=== PATIENT | male | born 1985 | race Caucasian/White ===

== ENCOUNTER 2016-11-20 13:45 | Emergency (ER) | payer MEDICAID, OTHER ==
[2016-11-20 14:06] VITALS: BP 158/108
--- NOTE | 2016-11-20 14:30 | EDM.PDOC ---
ED HPI GENERAL MEDICAL PROBLEM - General Chief Complaint: Laceration Stated Complaint: CUT FIRST FINGER LEFT HAND Time Seen by Provider: 11/20/16 14:12 Source of Information: Reports: Patient, RN Notes Reviewed History Limitations: Reports: No Limitations - History of Present Illness INITIAL COMMENTS - FREE TEXT/NARRATIVE: 31-year-old gentleman presents emergency department today with a laceration to the distal tip of his index finger on his left hand he injured himself with a knife, bleeding is controlled no functional complaints finger Pain Score (Numeric/FACES): 5 - Related Data Allergies Allergy/AdvReac Type Severity Reaction Status Date / Time No Known Allergies Allergy Verified 11/20/16 13:58 Home Meds: Home Meds Albuterol Sulfate [Proair Hfa] 2 puff IH Q4H PRN 02/12/15 [History] Citalopram Hydrobromide [Celexa] 20 mg PO DAILY 11/20/16 [History] Past Medical History Respiratory History: Reports: Asthma, Bronchitis, Recurrent Musculoskeletal History: Reports: Fracture Psychiatric History: Reports: Anxiety, Depression - Infectious Disease History Infectious Disease History: Reports: Chicken Pox - Past Surgical History HEENT Surgical History: Reports: Tonsillectomy GI Surgical History: Reports: Appendectomy Social & Family History - Tobacco Use Smoking Status *Q: Heavy Tobacco Smoker Years of Tobacco use: 17 Packs/Tins Daily: 1 Used Tobacco, but Quit: No Month Tobacco Last Used: mar Second Hand Smoke Exposure: Yes - Caffeine Use Caffeine Use: Reports: Coffee, Energy Drinks, Soda - Alcohol Use Days Per Week of Alcohol Use: 4 Number of Drinks Per Day: 4 Total Drinks Per Week: 16 - Recreational Drug Use Recreational Drug Use: Yes Drug Use in Last 12 Months: Yes Recreational Drug Type: Reports: Marijuana/Hashish Recreational Drug Use Frequency: Daily - Living Situation & Occupation Living situation: Reports: , Other Occupation: Employed ED ROS GENERAL - Review of Systems Review Of Systems: See Below Constitutional: Reports: No Symptoms Skin: Reports: Wound ED EXAM, SKIN/RASH Exam: See Below Text/Narrative:: There is a superficial laceration distal tip index finger left hand no skin flaps appreciated bleeding is controlled full range of motion of all digits radial pulses 2+, wound is closed with a small amount of glue Course - Vital Signs Last Recorded V/S: Last Vital Signs Temp 98.2 F 11/20/16 14:05 Pulse 106 H 11/20/16 14:05 Resp 16 11/20/16 14:05 BP 158/108 H 11/20/16 14:05 Pulse Ox 97 11/20/16 14:05 Departure - Departure Time of Disposition: 14:54 Disposition: Home, Self-Care 01 Condition: good Clinical Impression: Laceration of left index finger - Discharge Information Forms: ED Department Discharge Additional Instructions: Followup with your primary care as needed, follow wound care instruction sheet. - Assessment/Plan Plan: Assessment Acuity = acute Site and laterality = superficial laceration distal tip left index finger length 3 mm Etiology = trauma with a knife Manifestations = none Location of injury = home Lab values = none Plan Followup with primary care as needed 3-5 days if no improvement follow wound care instruction sheet Patient was in agreement with the plan all questions were answered, they were instructed to return to the emergency department or call for worsening symptoms. This note was dictated using [employer] voice recognition software please call with any questions.
== END 2016-11-20 15:10 | disposition home or self-care (01) ==
LOC: JP.ED 13:45
DX: S61.211A Laceration without foreign body of left index finger without damage to nail, initial encounter (principal); J45.909 Unspecified asthma, uncomplicated; F17.210 Nicotine dependence, cigarettes, uncomplicated; Z79.899 Other long term (current) drug therapy; Z90.49 Acquired absence of other specified parts of digestive tract; W26.0XXA Contact with knife, initial encounter
CPT/HCPCS: 12001; 99283-25

== ENCOUNTER 2017-02-09 07:34 | Emergency (ER) | payer MEDICAID ==
[2017-02-09 07:43] VITALS: BP 159/90
[2017-02-09] MEDS ORDERED: Albuterol/Ipratropium 3.0-0.5 MG/3 ML Neb Soln NEB ONE (08:03)
--- NOTE | 2017-02-09 08:09 | EDM.PDOC ---
[id number] 4d ASTHMA Time Seen by Provider: 02/09/17 07:50 Source of Information: Reports: Patient History Limitations: Reports: No Limitations - History of Present Illness INITIAL COMMENTS - FREE TEXT/NARRATIVE: 31-year-old male with chest tightness due to his "asthma". He feels like his tight, having difficulty breathing. Started after he woke up this morning. No significant cough. No radiation of pain, diaphoresis, nausea or vomiting. Onset: Unknown/Unsure (Sometime overnight) Severity: Mild Associated Symptoms: Reports: Shortness of Breath. Denies: Fever/Chills, Headaches Anterior Chest Pain Score (Numeric/FACES): 2 - Related Data Allergies Allergy/AdvReac Type Severity Reaction Status Date / Time No Known Allergies Allergy Verified 02/09/17 07:44 Home Meds: Home Meds Albuterol Sulfate [Proair Hfa] 2 puff IH Q4H PRN 02/12/15 [History] Citalopram Hydrobromide [Celexa] 20 mg PO DAILY 11/20/16 [History] Past Medical History Respiratory History: Reports: Asthma, Bronchitis, Recurrent Musculoskeletal History: Reports: Fracture Psychiatric History: Reports: Anxiety, Depression - Infectious Disease History Infectious Disease History: Reports: Chicken Pox - Past Surgical History HEENT Surgical History: Reports: Tonsillectomy GI Surgical History: Reports: Appendectomy Social & Family History - Tobacco Use Smoking Status *Q: Current Every Day Smoker Years of Tobacco use: 19 Packs/Tins Daily: 0.2 Used Tobacco, but Quit: No Month Tobacco Last Used: sept Second Hand Smoke Exposure: Yes - Caffeine Use Caffeine Use: Reports: Coffee, Energy Drinks, Soda - Alcohol Use Days Per Week of Alcohol Use: 4 Number of Drinks Per Day: 4 Total Drinks Per Week: 16 - Recreational Drug Use Recreational Drug Use: Yes Drug Use in Last 12 Months: Yes Recreational Drug Type: Reports: Marijuana/Hashish Recreational Drug Use Frequency: Daily - Living Situation & Occupation Living situation: Reports: , Other Occupation: Employed ED ROS GENERAL - Review of Systems Review Of Systems: See Below Constitutional: Denies: Fever Respiratory: Reports: Shortness of Breath Cardiovascular: Reports: Chest Pain GI/Abdominal: Denies: Abdominal Pain, Nausea, Vomiting Skin: Reports: No Symptoms Neurological: Denies: Confusion Psychiatric: Reports: Anxiety ED EXAM, GENERAL - Physical Exam Exam: See Below Exam Limited By: No Limitations General Appearance: Alert, No Apparent Distress Respiratory/Chest: No Respiratory Distress, Lungs Clear, Other (Patient does have some moderate outpatient tenderness across the anterior chest) Cardiovascular: Regular Rate, Rhythm Neurological: Alert, Oriented Psychiatric: Anxious Course - Vital Signs Last Recorded V/S: Last Vital Signs Temp 96.6 F 02/09/17 07:39 Pulse 100 02/09/17 08:10 Resp 18 02/09/17 07:39 BP 159/90 H 02/09/17 07:39 Pulse Ox 95 02/09/17 08:10 - Orders/Labs/Meds Orders: Active Orders 24 hr Category Date Time Status RT Aerosol Therapy [RC] ASDIRECTED Care 02/09/17 08:03 Active Meds: Medications Discontinued Medications Generic Name Dose Route Start Last Admin Trade Name Freq PRN Reason Stop Dose Admin Albuterol/Ipratropium 3 ml 02/09/17 08:03 02/09/17 08:08 Duoneb 3.0-0.5 Mg/3 Ml NEB 02/09/17 08:04 3 ml ONETIME ONE Administration - Re-Assessments/Exams Free Text/Narrative Re-Assessment/Exam: 02/09/17 08:09 Patient is convinced that a nebulizer will relieve his symptoms. A DuoNeb was given. 02/09/17 08:26 After the nebulizer the patient felt subjectively better. Objectively he was unchanged. He was given prednisone to take up to 40 mg daily for the next 2-4 days and encouraged to return to his regular activity. He can return if worsening. Departure - Departure Time of Disposition: 08:32 Disposition: Home, Self-Care 01 Condition: Good Clinical Impression: Reactive airway disease Qualifiers: Asthma severity: mild intermittent Asthma complication type: with acute exacerbation Qualified Code(s): J45.21 - Mild intermittent asthma with (acute) exacerbation - Discharge Information Instructions: Asthma, Adult, [id number] Referrals: PCP,None [Primary Care Provider] - Forms: ED Department Discharge Care Plan Goals: Take 4 pills of prednisone with your first meal of the day for the next 1-3 days. Continue using your inhaler as needed. Return if worsening or concerns. - My Orders Last 24 Hours: My Active Orders 02/09/17 08:03 RT Aerosol Therapy [RC] ASDIRECTED - Assessment/Plan Last 24 Hours: My Active Orders 02/09/17 08:03 RT Aerosol Therapy [RC] ASDIRECTED
== END 2017-02-09 08:34 | disposition home or self-care (01) ==
LOC: JP.ED 07:34
DX: J45.21 Mild intermittent asthma with (acute) exacerbation (principal); F41.9 Anxiety disorder, unspecified; F32.9 Major depressive disorder, single episode, unspecified; F17.210 Nicotine dependence, cigarettes, uncomplicated; Z98.890 Other specified postprocedural states; Z79.899 Other long term (current) drug therapy
CPT/HCPCS: 94640; 99285; J7620

== ENCOUNTER 2017-07-30 21:51 | Emergency (ER) | payer MEDICAID ==
[2017-07-30 22:01] VITALS: BP 160/105
--- NOTE | 2017-07-30 22:27 | EDM.PDOC ---
ED HPI GENERAL MEDICAL PROBLEM - General Chief Complaint: Genitourinary Problem Stated Complaint: TESTICLE PAIN Time Seen by Provider: 07/30/17 22:15 Source of Information: Reports: Patient History Limitations: Reports: No Limitations - History of Present Illness INITIAL COMMENTS - FREE TEXT/NARRATIVE: 32 yo male here with R groin pain. Had been seen in the [facility] after developing sudden onset of R testicular pain while working at the local [employer]. This was not associated with lifting. Initially in the clinic it was felt that he had a testicular infection and he was tx'd with antibiotics. When he did not improve he returned there and this time had an US of his testicle that was negative for any problem. They in turn referred him to a urologist in [place] who upon seeing Juan David promptly dx a hernia. Surgery was then performed. After surgery he continued to have some R groin pain and was told this was normal and pain medicine was prescribed. His R testicle has been retracted since the surgery. He had recently had some very hard stools requiring considerable straining at stool. He adjusted his diet when this occurred so most recently his stools are not as hard. For unknown reasons his R groin pain is now getting worse instead of better so he comes now to the ER for an explanation for this increase in pain. He states that his mother made him come and that he only reluctantly agreed to come. He has not called his surgeon believing that his surgeon would not give him any advice over the phone and would tell him to go to the ER. Follow up with the surgeon is not until the first week of August. There has not been a fever or vomiting. His appetite has been normal and he is urinating normally. After examining him and finding a persistently retracted R testicle, normal perineal bruising consistent with his surgery, and a normal abdominal exam I told him the most likely explanation for his pain was that straining at stool had stressed the still healing surgical site. I told him I would attempt to reach his surgeon to see if there was anything he recommended and would let him know. At this point he seemed very upset suddenly that I could not immediately tell him exactly what was causing his pain. Said he could call his surgeon himself the next day and that he didn't need help with that. Said he was going to leave and was not going to wait around to sign papers. Also informed me on his way out of the ER that he had recorded out entire conversation on his phone. Onset: Gradual Onset Date: 07/21/17 Duration: Day(s):, Getting Worse Location: Reports: Abdomen (RLQ) Quality: Reports: Ache Severity: Moderate Improves with: Reports: Rest Worsens with: Reports: Movement Context: Reports: Other (Had) Associated Symptoms: Reports: No Other Symptoms. 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: Other (see below) (pain pills, hydrocodone(getting low , but not yet out).) right testicle/ groin Pain Score (Numeric/FACES): 7 - Related Data Allergies Allergy/AdvReac Type Severity Reaction Status Date / Time No Known Allergies Allergy Verified 02/09/17 07:44 Home Meds: Home Meds Albuterol Sulfate [Proair Hfa] 2 puff IH Q4H PRN 02/12/15 [History] Citalopram Hydrobromide [Celexa] 20 mg PO DAILY 11/20/16 [History] Hydrocodone/Acetaminophen [Hydrocodon-Acetaminophen 5-325] 1 tab PO Q2H PRN [History] Past Medical History Respiratory History: Reports: Asthma, Bronchitis, Recurrent Musculoskeletal History: Reports: Fracture Psychiatric History: Reports: Anxiety, Depression - Infectious Disease History Infectious Disease History: Reports: Chicken Pox - Past Surgical History HEENT Surgical History: Reports: Tonsillectomy GI Surgical History: Reports: Appendectomy, Hernia, Inguinal Social & Family History - Tobacco Use Smoking Status *Q: Current Every Day Smoker Years of Tobacco use: 15 Packs/Tins Daily: 0.5 Used Tobacco, but Quit: No Month Tobacco Last Used: mar Second Hand Smoke Exposure: Yes - Caffeine Use Caffeine Use: Reports: None - Alcohol Use Days Per Week of Alcohol Use: 4 Number of Drinks Per Day: 4 Total Drinks Per Week: 16 - Recreational Drug Use Recreational Drug Use: Yes Drug Use in Last 12 Months: Yes Recreational Drug Type: Reports: Marijuana/Hashish Recreational Drug Use Frequency: Daily - Living Situation & Occupation Living situation: Reports: , Other Occupation: Employed ED ROS GENERAL - Review of Systems Review Of Systems: See Below Constitutional: Reports: No Symptoms HEENT: Reports: No Symptoms Respiratory: Reports: No Symptoms Cardiovascular: Reports: No Symptoms GI/Abdominal: Reports: No Symptoms : Reports: Other (Pain R groin/testicle) Musculoskeletal: Reports: No Symptoms Skin: Reports: Bruising (R perineal area where he had his hernia repair. ) Neurological: Reports: No Symptoms ED EXAM, GI/ABD - Physical Exam Exam: See Below Exam Limited By: No Limitations General Appearance: Alert, WD/WN, No Apparent Distress Eyes: Bilateral: Normal Appearance Ears: Normal External Exam, Normal Canal, Hearing Grossly Normal Nose: Normal Inspection, Normal Mucosa, No Blood Throat/Mouth: Normal Voice, No Airway Compromise Head: Atraumatic, Normocephalic Neck: Normal Inspection Respiratory/Chest: No Respiratory Distress, Lungs Clear, Normal Breath Sounds, No Accessory Muscle Use Cardiovascular: Regular Rate, Rhythm GI/Abdominal Exam: Normal Bowel Sounds, Soft, No Distention, Tender, Other ( Mild tenderness over RLQ in area of his recent surgery. ). No: No Mass, Distended, Guarding, Rigid, Rebound (Male) Exam: Circumcised, Testicular Tenderness (R) (R testicle retracted, but not enlarged. ). No: Cremasteric Reflex, Inguinal Lymphadenopathy, Penile Lesions, Rash, Scrotal Swelling, Scrotum Tenderness (L), Scrotum Tenderness (R) , Suprapubic Fullness, Testicular Mass, Testicular Tenderness (L), Urethral Discharge Back Exam: Normal Inspection, CVA Tenderness (R) Extremities: Normal Inspection Neurological: Alert, Oriented, CN II-XII Intact, Normal Cognition, No Motor/ Sensory Deficits Psychiatric: Other (demonstrates some characteristics of a personality disorder , ? Paranoid personality disorder). No: Anxious, Tearful Skin Exam: Warm, Dry, Intact, Ecchymosis (R groin area secondary to his recent surgery. ) Course - Vital Signs Last Recorded V/S: Last Vital Signs Temp 36.8 C 07/30/17 22:01 Pulse 126 H 07/30/17 22:01 Resp 16 07/30/17 22:01 BP 160/105 H 07/30/17 22:01 Pulse Ox 96 07/30/17 22:01 Departure - Departure Time of Disposition: 22:25 Disposition: Against Medical Advice 07 Condition: Fair Clinical Impression: RLQ abdominal pain - Discharge Information Referrals: PCP,None [Primary Care Provider] - Forms: ED Department Discharge
== END 2017-07-30 22:27 | disposition left against medical advice (07) ==
LOC: JP.ED 21:51
DX: N50.811 Right testicular pain (principal); R10.31 Right lower quadrant pain; R58 Hemorrhage, not elsewhere classified; J45.909 Unspecified asthma, uncomplicated; F17.210 Nicotine dependence, cigarettes, uncomplicated; Z79.899 Other long term (current) drug therapy
CPT/HCPCS: 99283

== ENCOUNTER 2017-11-07 07:26 | Day surgery (SDC) | payer MEDICAID ==
[2017-11-07] MEDS ORDERED: Propofol 200 MG/20 ML SDV ONE ×4 (07:57→12:18)
[2017-11-07] MEDS ORDERED: Midazolam 1 MG/ML 2 ML SDV ONE ×2 (07:57→11:29)
[2017-11-07] MEDS ORDERED: fentaNYL 100 MCG/2 ML SDV ONE ×2 (07:57→11:29)
[2017-11-07] MEDS ORDERED: Celecoxib 200 MG Cap PO ONE (08:15)
[2017-11-07] MEDS ORDERED: ceFAZolin 2 GM in Premix Bag 1 BAG IV ONE (08:15)
[2017-11-07] MEDS ORDERED: Dextrose 5%-Lactated Ringers 1,000 ML IV SCH (08:15)
[2017-11-07] MEDS ORDERED: Acetaminophen 500 MG Tab PO ONE (08:15)
[2017-11-07] MEDS ORDERED: Albuterol/Ipratropium 3.0-0.5 MG/3 ML Neb Soln NEB ONE (08:15)
[2017-11-07] MEDS ORDERED: Ketamine 500 MG/5 ML MDV IV ONE (08:45)
[2017-11-07] MEDS ORDERED: Lidocaine 1% with EPINEPHrine 1:100,000 50 ML MDV ONE (10:43)
[2017-11-07] MEDS ORDERED: Bupivacaine 0.5% 50 ML MDV ONE (10:43)
[2017-11-07] MEDS ORDERED: Triamcinolone Acetonide 40 MG/ML 1 ML MDV ONE (11:54)
[2017-11-07] MEDS ORDERED: Rocuronium 50 MG/5 ML Vial ONE (12:27)
[2017-11-07] MEDS ORDERED: Succinylcholine 200 MG/10 ML MDV ONE (12:27)
[2017-11-07] MEDS ORDERED: Lactated Ringers 1,000 ML ONE (12:29)
[2017-11-07] MEDS ORDERED: Glycopyrrolate 0.2 MG/ML 5 ML MDV ONE (12:39)
[2017-11-07] MEDS ORDERED: Neostigmine Methylsulfate 1 MG/ML 5 ML Syringe ONE (12:39)
[2017-11-07] MEDS ORDERED: Ketorolac 60 MG/2 ML SDV ONE (12:48)
[2017-11-07] MEDS ORDERED: Acetaminophen/oxyCODONE 325-5 MG Tab PO PRN (13:49)
[2017-11-07 14:17] VITALS: BP 144/80
--- NOTE | 2017-11-17 10:56 | OR ---
DATE OF PROCEDURE: 11/07/2017 PREOPERATIVE DIAGNOSIS: Chronic pain with recurrent right inguinal hernia. POSTOPERATIVE DIAGNOSES: 1. Chronic pain with recurrent right inguinal hernia. 2. Exaggerated inflammatory response to a mesh. OPERATIVE PROCEDURE: 1. Right inguinal exploration with: a. Repair of recurrent incarcerated right inguinal hernia with mesh (23658). b. Removal of intraperitoneal mesh (48463). c. Probable division of the right ilioinguinal nerve (63040). d. Probable division of the right genital branch of genitofemoral nerve (55419). ANESTHESIA: Local plus IV sedation converted to general. TRUCK PACKER: SARAH Edmonds INDICATION FOR PROCEDURE: This is a 32-year-old who is status post repair of right inguinal hernia with mesh in [place] in July of this year. Recently, he developed quite severe pain and presents for consideration of re-repair. On examination, the patient was noted to have what appeared to be recurrence of the hernia. There was also quite a bit of inflammation in the area. After discussion of the plan to begin proceed with anal exploration and re-repair of the hernia most likely with mesh plug technique once again and attempted division of the right ilioinguinal nerve and genital branch of the genitofemoral nerve to minimize postoperative neuropathic pain and we would also injected Kenalog into the inguinal floor at the conclusion of the procedure to reduce the amount of inflammatory response. Potential risks of the procedure including bleeding, infection, injury to underlying viscera, injury to the cord structures resulting in potentially impaired fertility and possibility of persistent postop pain over and over and the patient wishes to proceed. DESCRIPTION OF PROCEDURE: The patient was taken to the operating room, and after IV sedation was administered, the abdomen and groin areas were prepped and draped. The right inguinal area was anesthetized with 1% lidocaine mixed with Marcaine and previously used incision was then reused and carried somewhat lateral to the previous incision well across the right inguinal area, and it was carried down through the skin and subcutaneous tissue. As one approached the external ring, this was then divided. There was quite intense inflammatory response to this with some mesh present in that plane. This was wrapped around the cord structures somewhat. This was carefully dissected off with only one of the veins of the venous plexus requiring division upon removal. There appeared to be an exaggerated inflammatory response to the mesh in that plane, once the cord structures were moved up, it was noted the patient had prolapse of the intraperitoneal mesh in a general upward direction over Coopers ligament. This was then initially excised and the intraperitoneal mesh was then removed using electrocautery for dissection. At this point, the extra large mesh plug was then placed into the defect. This was placed underneath the conjoined tendon superior to Hunter ligament. In this case, it was affixed to Hunter ligament using the titanium tacking screws which one would expect to have a better likelihood of staying in place. The underside of the mesh was then tacked beneath the edges of the conjoined tendon superiorly, laterally, and medially with horizontal mattress sutures of 0 Vicryl stitch over this and then the conjoined tendon was tacked down to the shelving portion of the inguinal ligament with a running 0 Vicryl stitch to provide some additional coverage into that area. Medially, the floor had some mesh present which at this point didn't appear to be causing a particular problem and did result in good solid inguinal floor medially. During the course of the dissection what appeared to be the ilioinguinal nerve was identified and excised and then dissection in the area of cord structures upon what appeared to be most likely the genital branch of the genitofemoral nerve. These were both divided with the latter being at the point of the internal ring and the former in the lateral aspect of the incision. At that point, no further problems were noted. The area of the inguinal floor and surrounding areas were injected with total of 30 mg Kenalog mixed with 0.5% Marcaine. The additional flap portion of the mesh plug system was not reduced in this case and the external oblique aponeurosis was then approximated with a 3-0 Vicryl stitch as was the Siva's fascia and the skin closed with 4-0 Vicryl subcuticular stitch. Dressing was applied. The patient was taken to the recovery room in satisfactory condition. There were no evident complications. Levi Reynoso MD /[id number]
== END 2017-11-07 14:39 | disposition home or self-care (01) ==
LOC: JP.SDS 07:26
PROVIDERS: ATTEND Surgery
DX: K40.91 Unilateral inguinal hernia, without obstruction or gangrene, recurrent (principal); T85.79XA Infection and inflammatory reaction due to other internal prosthetic devices, implants and grafts, initial encounter; G89.29 Other chronic pain; J45.909 Unspecified asthma, uncomplicated; E66.9 Obesity, unspecified
CPT/HCPCS: 49520; 64772; 88300; 88305; A9270; C1781; J0330; J0690; J1885; J2020; J2250; J2704; J2710; J3010; J3301; J7042; J7120; J7620

== ENCOUNTER 2018-02-14 15:17 | Emergency (ER) | payer MEDICAID, OTHER ==
[2018-02-14] MEDS: Albuterol 0.083% 2.5 MG/3 ML Neb Soln NEB ONE (15:22)
[2018-02-14 15:32] VITALS: BP 135/67
--- NOTE | 2018-02-14 15:57 | EDM.PDOC ---
ED HPI GENERAL MEDICAL PROBLEM - General Chief Complaint: Respiratory Problem Stated Complaint: TROUBLE BREATHING Time Seen by Provider: 02/14/18 15:22 Source of Information: Reports: Patient History Limitations: Reports: No Limitations - History of Present Illness INITIAL COMMENTS - FREE TEXT/NARRATIVE: 32 yo male presents with hyperventilation and complaints of asthma exacerbation. 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 He used his albuterol inhaler without relief. denies seasonal allergies. denies anxiety Generalized Pain Score (Numeric/FACES): 2 - Related Data Allergies Allergy/AdvReac Type Severity Reaction Status Date / Time No Known Allergies Allergy Verified 11/07/17 07:55 Home Meds: Home Meds Albuterol Sulfate [Proair Hfa] 2 puff IH Q4H PRN 02/12/15 [History] Citalopram Hydrobromide [Celexa] 20 mg PO DAILY 11/20/16 [History] Hydrocodone/Acetaminophen [Hydrocodon-Acetaminophen 5-325] 1 tab PO Q2H PRN [History] Ibuprofen 800 mg PO Q8HR PRN 11/06/17 [History] Past Medical History HEENT History: Reports: None, Impaired Vision Respiratory History: Reports: Asthma, Bronchitis, Recurrent Gastrointestinal History: Reports: None Musculoskeletal History: Reports: Fracture Psychiatric History: Reports: Anxiety, Depression Endocrine/Metabolic History: Reports: Obesity/BMI 30+ - Infectious Disease History Infectious Disease History: Reports: Chicken Pox - Past Surgical History Head Surgeries/Procedures: Reports: None HEENT Surgical History: Reports: Tonsillectomy Respiratory Surgical History: Reports: None GI Surgical History: Reports: Appendectomy, Hernia, Inguinal Endocrine Surgical History: Reports: None Musculoskeletal Surgical History: Reports: None Dermatological Surgical History: Reports: None Social & Family History - Family History Family Medical History: Noncontributory - Tobacco Use Smoking Status *Q: Current Every Day Smoker Years of Tobacco use: 23 Packs/Tins Daily: 0.2 - Caffeine Use Caffeine Use: Reports: Coffee - Recreational Drug Use Recreational Drug Use: Yes Drug Use in Last 12 Months: Yes Recreational Drug Type: Reports: Marijuana/Hashish Recreational Drug Use Frequency: Daily - Living Situation & Occupation Living situation: Reports: , Other Occupation: Employed ED ROS GENERAL - Review of Systems Review Of Systems: See Below Constitutional: Reports: Fatigue. Denies: Fever, Chills HEENT: Denies: Sinus Problem Respiratory: Reports: Shortness of Breath. Denies: Wheezing, Pleuritic Chest Pain, Cough Cardiovascular: Denies: Chest Pain GI/Abdominal: Denies: Abdominal Pain ED EXAM, GENERAL - Physical Exam Exam: See Below Exam Limited By: No Limitations General Appearance: Alert, WD/WN, Anxious, Mild Distress Head: Atraumatic, Normocephalic Neck: Normal Inspection, Supple, Non-Tender, Full Range of Motion Respiratory/Chest: Lungs Clear, Normal Breath Sounds, No Accessory Muscle Use, Chest Non-Tender Cardiovascular: No Edema, No Murmur, Tachycardia GI/Abdominal: Normal Bowel Sounds, Soft, Non-Tender Neurological: Alert, Oriented Psychiatric: Normal Affect, Normal Mood Skin Exam: Warm, Dry, Intact Course - Vital Signs Last Recorded V/S: Last Vital Signs Temp 36.9 C 02/14/18 15:32 Pulse 94 02/14/18 15:32 Resp 28 H 02/14/18 15:32 BP 135/67 02/14/18 15:32 Pulse Ox 98 02/14/18 15:32 - Orders/Labs/Meds Orders: Active Orders 24 hr Category Date Time Status RT Aerosol Therapy [RC] ASDIRECTED Care 02/14/18 15:18 Active RT Aerosol Therapy [RC] ASDIRECTED Care 02/14/18 15:44 Active Meds: Medications Discontinued Medications Generic Name Dose Route Start Last Admin Trade Name Reuben PRN Reason Stop Dose Admin Albuterol 2.5 mg 02/14/18 15:18 02/14/18 15:22 Proventil Neb Soln NEB 02/14/18 15:19 2.5 mg ONETIME ONE Administration Albuterol/Ipratropium 3 ml 02/14/18 15:44 02/14/18 15:59 Duoneb 3.0-0.5 Mg/3 Ml NEB 02/14/18 15:45 3 ml ONETIME ONE Administration Methylprednisolone Sodium Succinate 125 mg 02/14/18 15:45 02/14/18 16:00 Solu-Medrol IM 02/14/18 15:46 125 mg ONETIME ONE Administration - Re-Assessments/Exams Free Text/Narrative Re-Assessment/Exam: 02/14/18 16:20 appears more relaxed with return of normal respiration rate post neb. IM steroid and home to rest Departure - Departure Time of Disposition: 16:20 Disposition: Home, Self-Care 01 Condition: Good Clinical Impression: Asthma exacerbation Qualifiers: Asthma severity: moderate Asthma persistence: unspecified Qualified Code(s): J45.901 - Unspecified asthma with (acute) exacerbation - Discharge Information *PRESCRIPTION DRUG MONITORING PROGRAM REVIEWED*: Not Applicable *COPY OF PRESCRIPTION DRUG MONITORING REPORT IN PATIENT CHAD: Not Applicable Instructions: Asthma, Adult, [id number] Referrals: PCP,None [Primary Care Provider] - Forms: ED Department Discharge Additional Instructions: home to rest increase fluid intake follow-up with primary care for continued asthma management - My Orders Last 24 Hours: My Active Orders 02/14/18 15:18 RT Aerosol Therapy [RC] ASDIRECTED 02/14/18 15:44 RT Aerosol Therapy [RC] ASDIRECTED - Assessment/Plan Last 24 Hours: My Active Orders 02/14/18 15:18 RT Aerosol Therapy [RC] ASDIRECTED 02/14/18 15:44 RT Aerosol Therapy [RC] ASDIRECTED
[2018-02-14] MEDS: Albuterol/Ipratropium 3.0-0.5 MG/3 ML Neb Soln NEB ONE (15:59)
[2018-02-14] MEDS: methylPREDNISolone Sodium Succinate 125 MG/2 ML SDV IM ONE (16:00)
== END 2018-02-14 16:28 | disposition home or self-care (01) ==
LOC: JP.ED 15:17
DX: J45.901 Unspecified asthma with (acute) exacerbation (principal); F32.9 Major depressive disorder, single episode, unspecified; E66.9 Obesity, unspecified; F17.210 Nicotine dependence, cigarettes, uncomplicated
CPT/HCPCS: 94640; 96372; 99285; J2930; J7620

== ENCOUNTER 2018-08-30 19:31 | Emergency (ER) | payer MEDICAID ==
[2018-08-30 20:18] VITALS: BP 145/91
[2018-08-30] MEDS ORDERED: HYDROmorphone 1 MG/ML Syringe IM ONE (20:31)
--- NOTE | 2018-08-30 20:36 | EDM.PDOC ---
ED HPI GENERAL MEDICAL PROBLEM - General Chief Complaint: General Stated Complaint: GROIN PAIN Time Seen by Provider: 08/30/18 20:27 Source of Information: Reports: Patient, Family, Old Records, RN Notes Reviewed History Limitations: Reports: No Limitations - History of Present Illness INITIAL COMMENTS - FREE TEXT/NARRATIVE: 33-year-old gentleman presents to the emergency department today with complaint of groin pain he has a known history of inguinal hernia with mesh unfortunately his mesh has failed he is scheduled for surgery repair on Friday of this upcoming week his biggest issue is pain control he has use hydrocodone the past which provided some relief right groin Pain Score (Numeric/FACES): 7 - Related Data Allergies Allergy/AdvReac Type Severity Reaction Status Date / Time No Known Allergies Allergy Verified 08/30/18 20:07 Home Meds: Home Meds Albuterol Sulfate [Proair Hfa] 2 puff IH Q4H PRN 02/12/15 [History] Hydrocodone/Acetaminophen [Hydrocodon-Acetaminophen 5-325] 1 tab PO Q2H PRN [History] Past Medical History HEENT History: Reports: Impaired Vision Respiratory History: Reports: Asthma, Bronchitis, Recurrent Musculoskeletal History: Reports: Fracture Psychiatric History: Reports: Anxiety, Depression Endocrine/Metabolic History: Reports: Obesity/BMI 30+ - Infectious Disease History Infectious Disease History: Reports: Chicken Pox - Past Surgical History Head Surgeries/Procedures: Reports: None HEENT Surgical History: Reports: Tonsillectomy GI Surgical History: Reports: Appendectomy, Hernia, Inguinal, Other (See Below) Other GI Surgeries/Procedures: mesh repair Dermatological Surgical History: Reports: None Social & Family History - Family History Family Medical History: Noncontributory - Tobacco Use Smoking Status *Q: Current Every Day Smoker Years of Tobacco use: 24 Packs/Tins Daily: 0.3 - Caffeine Use Caffeine Use: Reports: None - Recreational Drug Use Recreational Drug Use: Yes Drug Use in Last 12 Months: Yes Recreational Drug Type: Reports: Marijuana/Hashish Recreational Drug Use Frequency: Daily - Living Situation & Occupation Living situation: Reports: , Other Occupation: Employed ED ROS GENERAL - Review of Systems Review Of Systems: See Below Constitutional: Reports: No Symptoms GI/Abdominal: Reports: Abdominal Pain. Denies: Nausea, Vomiting ED EXAM, GENERAL - Physical Exam Exam: See Below Free Text/Narrative:: Examination of the groin the surgical wound is clean dry and intact is tender to the touch there is no palpable mass appreciated otherwise abdomen is soft and nontender Exam Limited By: No Limitations General Appearance: Alert, Mild Distress Respiratory/Chest: No Respiratory Distress Course - Vital Signs Last Recorded V/S: Last Vital Signs Temp 99.0 F 08/30/18 20:18 Pulse 98 08/30/18 20:18 Resp 19 08/30/18 20:18 BP 145/91 H 08/30/18 20:18 Pulse Ox 97 08/30/18 20:18 - Orders/Labs/Meds Orders: Active Orders 24 hr Category Date Time Status HYDROmorphone [Dilaudid] Med 08/30/18 20:31 Once 1 mg IM ONETIME ONE Departure - Departure Time of Disposition: 20:35 Disposition: Home, Self-Care 01 Condition: Fair Clinical Impression: Right groin pain - Discharge Information Referrals: PCP,None [Primary Care Provider] - Forms: ED Department Discharge, ED Return to Work/School Form Additional Instructions: Use ibuprofen for baseline pain control, use Percocet as needed for breakthrough pain, keep your follow-up appointment with general surgery on Friday of this next week - My Orders Last 24 Hours: My Active Orders 08/30/18 20:31 HYDROmorphone [Dilaudid] 1 mg IM ONETIME ONE - Assessment/Plan Last 24 Hours: My Active Orders 08/30/18 20:31 HYDROmorphone [Dilaudid] 1 mg IM ONETIME ONE Plan: Assessment Acuity = acute Site and laterality = right inguinal groin hernia status post repair with mesh failure Etiology = unknown etiology Manifestations = pain] Location of injury = Home Lab values = none Plan Prescription written for oxycodone 5/325 one tablet by mouth 3 times a day when necessary total #10 he will follow-up for surgery This note was dictated using [employer] voice recognition software please call with any questions on syntax or grammar.
== END 2018-08-30 21:13 | disposition home or self-care (01) ==
LOC: JP.ED 19:31
DX: K40.90 Unilateral inguinal hernia, without obstruction or gangrene, not specified as recurrent (principal); F17.210 Nicotine dependence, cigarettes, uncomplicated; Z90.49 Acquired absence of other specified parts of digestive tract; Z98.890 Other specified postprocedural states
CPT/HCPCS: 96372; 99283; J1170

== ENCOUNTER 2018-09-01 07:40 | Day surgery (SDC) | payer MEDICAID ==
[~2018-09-01 07:40] MED LIST: Bupivacaine 0.5% 50 ML MDV ONE; Lidocaine 1% with EPINEPHrine 1:100,000 50 ML MDV ONE
[2018-09-01] MEDS ORDERED: Albuterol/Ipratropium 3.0-0.5 MG/3 ML Neb Soln NEB ONE (07:49)
[2018-09-01] MEDS ORDERED: fentaNYL 250 MCG/5 ML SDV ONE ×2 (08:24→08:59)
[2018-09-01] MEDS ORDERED: Neostigmine Methylsulfate 1 MG/ML 5 ML Syringe ONE (08:25)
[2018-09-01] MEDS ORDERED: Glycopyrrolate 0.2 MG/ML 5 ML MDV ONE (08:25)
[2018-09-01] MEDS ORDERED: Succinylcholine 200 MG/10 ML MDV ONE (08:25)
[2018-09-01] MEDS ORDERED: Dexamethasone 4 MG/ML SDV ONE (08:25)
[2018-09-01] MEDS ORDERED: Propofol 200 MG/20 ML SDV ONE ×2 (08:25→10:16)
[2018-09-01] MEDS ORDERED: Ondansetron 4 MG/2 ML SDV ONE (08:25)
[2018-09-01] MEDS ORDERED: Rocuronium 50 MG/5 ML Vial ONE (08:25)
[2018-09-01] MEDS ORDERED: Sodium Chloride 0.9% 1,000 ML IV SCH (08:30)
[2018-09-01] MEDS ORDERED: Ropivacaine 60 ML, Dexamethasone 8 MG, EPINEPHrine 0.4 MG, Sodium Chloride 0.9% 17.6 ML NERVRT SCH ×4 (08:45)
[2018-09-01] MEDS ORDERED: ceFAZolin 1 GM Vial ONE (09:12)
[2018-09-01] MEDS ORDERED: Sodium Chloride 0.9% 10 ML ONE (09:12)
[2018-09-01] MEDS ORDERED: Ketorolac 60 MG/2 ML SDV ONE (09:59)
[2018-09-01] MEDS ORDERED: Acetaminophen/HYDROcodone 325-5 MG Tab PO PRN (11:47)
[2018-09-01 12:10] VITALS: BP 134/69
--- NOTE | 2018-09-01 13:37 | OR ---
DATE OF PROCEDURE: 09/01/2018 PROCEDURE: Bilateral transversus abdominis plane block. COMPLICATIONS: None. DEVULCANIZER OPERATOR: None. RISKS: Risks, benefits, alternatives, and limitations including, but not limited to infection, bleeding, and injury to abdominal structures were explained to the patient. PROCEDURE IN DETAIL: Using the 11 Mhz ultrasound probe, the transversus plane identified on the right. This was directly injected with the total contents of the syringe. The opposite side was then performed in same manner, same fashion, same technique, in the same sequence, using the same equipment. The patient tolerated the procedure well. Sarmad Arnold MD /[id number]
--- NOTE | 2018-09-01 13:39 | OR ---
DATE OF PROCEDURE: 09/01/2018 PROCEDURE: Right total extraperitoneal hernia repair, recurrent, strangulated, incarcerated. COMPLICATIONS: None. GAS STATION SUPERVISOR: None. ANESTHESIA: MAC. PREOPERATIVE DIAGNOSIS: Recurrent incarcerated hernia, right. POSTOPERATIVE DIAGNOSIS: Recurrent incarcerated hernia, right. RISKS: Risks, benefits, alternatives, and limitations including, but not limited to infection, bleeding, and perforation were explained to the patient, who wished to proceed. We also discussed chronic pain, recurrent hernias, and other risks not listed here. PROCEDURE IN DETAIL: The patient was placed in a supine position. An infraumbilical incision was made. Electrocautery was used to carry it down to the fascia, which was opened with the electrocautery itself. The rectus muscle was deflected to the right, and a preperitoneal space was created using a Pean. Using the balloon dissector, this was then passed in the preperitoneal plane. This was insufflated and held for 1 minute. This was then deflated and the preperitoneal space was inspected. There was no evidence of enterotomy or peritoneal perforation. Dissection was then commenced in a lateral to medial approach. The pubic symphysis, epigastric arteries, cord structures were all identified and re-identified during the procedure. This avascular plane was identified and dissected. The indirect hernia was identified and the peritoneum was reduced with mild difficulty. No abnormal bleeding was noted. The patient also had a small area of defect which was noted to be in the sac itself. A small piece of mesh was placed within the sac and then closed again with interrupted suture. The mesh was then introduced through the 10 mm port. Of note, two 5 mm ports were entered previously in the surgery for facilitation of dissection. The mesh was placed with approximately 2-cm overlap of the pubic symphysis and unrolled without difficulty. The air was removed. The ports were removed. The fascia was closed with #1 Vicryl interrupted sutures. Subcutaneous tissues were approximated with Vicryl and the skin was closed with Vicryl. The patient tolerated the procedure well. Sarmad Arnold MD /[id number]
== END 2018-09-01 12:05 | disposition home or self-care (01) ==
LOC: JP.SDS 07:40
PROVIDERS: ATTEND Surgery
DX: K40.31 Unilateral inguinal hernia, with obstruction, without gangrene, recurrent (principal); J45.909 Unspecified asthma, uncomplicated; F32.9 Major depressive disorder, single episode, unspecified; F17.210 Nicotine dependence, cigarettes, uncomplicated
CPT/HCPCS: 36415; 80048; 85027; A9270-GY; C1781; J0171; J0330; J0690; J1100; J1885; J2405; J2704; J2710; J2795; J3010; J3490; J7030; J7050; J7620-GY

== ENCOUNTER 2018-09-20 20:41 | Emergency (ER) | payer MEDICAID ==
[2018-09-20 21:24] VITALS: BP 149/90
[2018-09-20] MEDS ORDERED: HYDROmorphone 1 MG/ML Syringe IM ONE (21:33)
--- NOTE | 2018-09-20 21:53 | EDM.PDOC ---
ED HPI GENERAL MEDICAL PROBLEM - General Chief Complaint: Abdominal Pain Stated Complaint: POSSIBLE HERNIA Time Seen by Provider: 09/20/18 21:31 Source of Information: Reports: Patient, RN Notes Reviewed History Limitations: Reports: No Limitations - History of Present Illness INITIAL COMMENTS - FREE TEXT/NARRATIVE: 33-year-old gentleman presents to the emergency department today with complaint of right inguinal pain, he has had multiple hernia and surgical repair complications in this area he recently slipped on the ice a couple of days ago was able to catch himself but sudden onset of pain in the area. Right Lower Abdomen Pain Score (Numeric/FACES): 5 - Related Data Allergies Allergy/AdvReac Type Severity Reaction Status Date / Time No Known Allergies Allergy Verified 09/20/18 21:15 Home Meds: Home Meds Albuterol Sulfate [Proair Hfa] 2 puff IH Q4H PRN 02/12/15 [History] Past Medical History HEENT History: Reports: Impaired Vision, Other (See Below) Other HEENT History: wears glasses Respiratory History: Reports: Asthma, Bronchitis, Recurrent Gastrointestinal History: Reports: None Musculoskeletal History: Reports: Fracture Psychiatric History: Reports: Anxiety, Depression Endocrine/Metabolic History: Reports: Obesity/BMI 30+ - Infectious Disease History Infectious Disease History: Reports: Chicken Pox - Past Surgical History Head Surgeries/Procedures: Reports: None HEENT Surgical History: Reports: Tonsillectomy GI Surgical History: Reports: Appendectomy, Hernia, Inguinal, Other (See Below) Other GI Surgeries/Procedures: mesh repair 09/01/2018 Dermatological Surgical History: Reports: None Social & Family History - Family History Family Medical History: Noncontributory - Tobacco Use Smoking Status *Q: Current Some Day Smoker Years of Tobacco use: 22 Packs/Tins Daily: 0 Used Tobacco, but Quit: No Tobacco Use Comment: Smokes off and on. Second Hand Smoke Exposure: No - Caffeine Use Caffeine Use: Reports: None - Alcohol Use Days Per Week of Alcohol Use: 0 - Recreational Drug Use Recreational Drug Use: Yes Drug Use in Last 12 Months: Yes Recreational Drug Type: Reports: Marijuana/Hashish Recreational Drug Use Frequency: Daily - Living Situation & Occupation Living situation: Reports: , Other Occupation: Employed ED ROS GENERAL - Review of Systems Review Of Systems: See Below Constitutional: Reports: No Symptoms GI/Abdominal: Reports: Abdominal Pain. Denies: Nausea, Vomiting ED EXAM, GI/ABD - Physical Exam Exam: See Below Text/Narrative:: Examination abdomen is soft and nontender except for the right inguinal area exquisitely tender the touch bowel sounds are present Exam Limited By: No Limitations General Appearance: Alert, Mild Distress Course - Vital Signs Last Recorded V/S: Last Vital Signs Temp 98.1 F 09/20/18 21:22 Pulse 107 H 09/20/18 21:22 Resp 16 09/20/18 21:22 BP 149/90 H 09/20/18 21:22 Pulse Ox 96 09/20/18 21:22 - Orders/Labs/Meds Meds: Medications Discontinued Medications Generic Name Dose Route Start Last Admin Trade Name Freq PRN Reason Stop Dose Admin Hydromorphone HCl 1 mg 09/20/18 21:33 09/20/18 21:39 Dilaudid IM 09/20/18 21:34 1 mg ONETIME ONE Administration Departure - Departure Time of Disposition: 21:52 Disposition: Home, Self-Care 01 Condition: Fair Clinical Impression: Abdominal pain Qualifiers: Abdominal location: right lower quadrant Qualified Code(s): R10.31 - Right lower quadrant pain - Discharge Information Referrals: PCP,None [Primary Care Provider] - Additional Instructions: Please report for your CAT scan of the abdomen with oral contrast tomorrow call the [facility] tomorrow for an appointment time with Dr. Arnold on Friday, at this time he will review the CAT scan with you and developed a plan for treatment of your pain - Assessment/Plan Plan: Assessment Acuity = acute Site and laterality = abdominal pain pelvic area right inguinal region Etiology = suspicious for disruption of recent surgery: Repair to the right inguinal hernia Manifestations = none Location of injury = Home Lab values = none Plan called discussed case Dr. Arnold at [address] the abdomen and pelvis with oral contrast on Friday follow-up with him in clinic on Friday prescription written for hydrocodone 5/325 one tab by mouth 3 times a day when necessary total #10 This note was dictated using [employer] voice recognition software please call with any questions on syntax or grammar.
== END 2018-09-20 22:03 | disposition home or self-care (01) ==
LOC: JP.ED 20:41
DX: R10.31 Right lower quadrant pain (principal); F17.210 Nicotine dependence, cigarettes, uncomplicated; Z79.899 Other long term (current) drug therapy
CPT/HCPCS: 96372; 99283; J1170

== ENCOUNTER 2019-04-15 07:20 | Day surgery (SDC) | payer MEDICAID ==
[2019-04-15] MEDS ORDERED: Midazolam 1 MG/ML 2 ML SDV ONE (07:36)
[2019-04-15] MEDS ORDERED: fentaNYL 100 MCG/2 ML SDV ONE (07:36)
[2019-04-15] MEDS ORDERED: Propofol 200 MG/20 ML SDV ONE ×4 (07:36→09:17)
[2019-04-15] MEDS ORDERED: Sodium Chloride 0.9% 1,000 ML IV SCH (08:00)
[2019-04-15] MEDS ORDERED: ceFAZolin 2 GM in Premix Bag 1 BAG IV ONE (08:00)
[2019-04-15] MEDS ORDERED: hydrOXYzine HCl 100 MG/2 ML SDV IM ONE (09:56)
[2019-04-15 10:57] VITALS: BP 151/87; PULSE 90
[2019-04-15] MEDS ORDERED: Acetaminophen/HYDROcodone 325-5 MG Tab PO ONE (10:59)
--- NOTE | 2019-04-15 14:53 | OR ---
DATE OF PROCEDURE: 04/15/2019 SURGEON: Sarmad Arnold MD PROCEDURES: 1. Right groin exploration. 2. Repair of right inguinal hernia, indirect, small. COMPLICATIONS: None. CREDIT CARD ANALYST: None. ANESTHESIA: MAC/local. RISKS: Risks, benefits, alternatives, and limitations including, but not limited to infection, bleeding, perforation, and injury to abdominal structures, along with vascular injury resulting in testicular loss were explained to the patient, who wished to proceed. PROCEDURE IN DETAIL: The patient was placed in supine position. The previous right groin incision was reopened. This was carried down with electrocautery to the external oblique aponeurosis, which was then opened with a 15 blade. Cord structures were identified and surrounded with a Nadir drain. The patient had essentially two small indirect inguinal hernias, which were in proximity to each other and two small plug meshes were used to repair this without difficulty. All pieces of the mesh were then sutured into place with interrupted Vicryl sutures. This was then thoroughly irrigated. The external oblique aponeurosis was then closed with Vicryl. Another round of irrigation. Fat was then approximated with 3-0 Vicryl and the skin was closed with 4-0 Vicryl. Dermabond was applied. The patient tolerated the procedure well. Sarmad Arnold MD /[id number]
== END 2019-04-15 11:22 | disposition home or self-care (01) ==
LOC: JP.SDS 07:20
PROVIDERS: ATTEND Surgery
DX: K40.90 Unilateral inguinal hernia, without obstruction or gangrene, not specified as recurrent (principal); J45.909 Unspecified asthma, uncomplicated; F17.200 Nicotine dependence, unspecified, uncomplicated; F32.9 Major depressive disorder, single episode, unspecified
CPT/HCPCS: A9270-GY; C1781; J0171; J0690; J1100; J2250; J2704; J2795; J3010; J3410; J3490; J7030; J7050

== ENCOUNTER 2019-04-18 09:46 | Emergency (ER) | payer MEDICAID ==
[2019-04-18 09:59] VITALS: BP 151/97; PULSE 97
--- NOTE | 2019-04-18 10:22 | EDM.PDOC ---
ED HPI GENERAL MEDICAL PROBLEM - General Chief Complaint: Abdominal Pain Stated Complaint: POST SURGERY PAIN Time Seen by Provider: 04/18/19 10:13 Source of Information: Reports: Patient, Old Records, RN Notes Reviewed History Limitations: Reports: No Limitations - History of Present Illness INITIAL COMMENTS - FREE TEXT/NARRATIVE: 33-year-old gentleman presents emergency department today complaint of abdominal pain, he is postop day 3 right inguinal hernia repair he had been using combination of mobic And tramadol to control his pain which he states worked well unfortunately he ran out of pain medications last night. He is asking for some pain medication to get him through until he can contact his surgeon tomorrow Pelvic Pain Score (Numeric/FACES): 7 - Related Data Allergies Allergy/AdvReac Type Severity Reaction Status Date / Time No Known Allergies Allergy Verified 04/18/19 10:01 Home Meds: Home Meds Albuterol Sulfate [Proair Hfa] 2 puff IH Q4H PRN 02/12/15 [History] Acetaminophen 325 mg PO Q4HR PRN 04/18/19 [History] Meloxicam 7.5 mg PO Q12HR 04/18/19 [History] traMADol HCl [Tramadol HCl] 50 mg PO Q6HR PRN 04/18/19 [History] Past Medical History HEENT History: Reports: Impaired Vision, Other (See Below) Other HEENT History: wears glasses Respiratory History: Reports: Asthma, Bronchitis, Recurrent Musculoskeletal History: Reports: Fracture Psychiatric History: Reports: Anxiety, Depression Endocrine/Metabolic History: Reports: Obesity/BMI 30+ - Infectious Disease History Infectious Disease History: Reports: Chicken Pox - Past Surgical History Head Surgeries/Procedures: Reports: None HEENT Surgical History: Reports: Tonsillectomy Respiratory Surgical History: Reports: None GI Surgical History: Reports: Appendectomy, Hernia, Inguinal, Other (See Below) Other GI Surgeries/Procedures: mesh repair 09/01/2018 Endocrine Surgical History: Reports: None Musculoskeletal Surgical History: Reports: None Dermatological Surgical History: Reports: None Social & Family History - Family History Family Medical History: Noncontributory - Tobacco Use Smoking Status *Q: Current Every Day Smoker Years of Tobacco use: 23 Packs/Tins Daily: 0.5 - Caffeine Use Caffeine Use: Reports: Soda - Recreational Drug Use Recreational Drug Use: Yes Recreational Drug Type: Reports: Marijuana/Hashish - Living Situation & Occupation Living situation: Reports: , Other Occupation: Employed ED ROS GENERAL - Review of Systems Review Of Systems: See Below (He) GI/Abdominal: Reports: Abdominal Pain, Flatus. Denies: Nausea ED EXAM, GENERAL - Physical Exam Exam: See Below Exam Limited By: No Limitations General Appearance: Alert, WD/WN, No Apparent Distress Respiratory/Chest: No Respiratory Distress GI/Abdominal: Normal Bowel Sounds, Soft, Tender (Under over incisional area) Course - Vital Signs Last Recorded V/S: Last Vital Signs Temp 98.9 F 04/18/19 10:00 Pulse 97 04/18/19 10:00 Resp 17 04/18/19 10:00 BP 151/97 H 04/18/19 10:00 Pulse Ox 100 04/18/19 10:00 Departure - Departure Time of Disposition: 10:21 Disposition: Home, Self-Care 01 Condition: Fair Clinical Impression: Post-operative pain - Discharge Information Instructions: Pain Relief Before and After Surgery Referrals: Jade Allen MD [Primary Care Provider] - Additional Instructions: Continue to use the Ultram as needed for pain control in combination with ibuprofen, please call your general surgeon tomorrow morning call return to the emergency department worsening of symptoms - Assessment/Plan Plan: Assessment Acuity = acute Site and laterality = postoperative pain postop day 3 Etiology = out of pain medication Manifestations = none Location of injury = Home Lab values = none Plan Prescription written for Ultram 1-2 tablets by mouth every 6-8 hours when necessary total #15, we will call general surgeon tomorrow morning This note was dictated using [employer] voice recognition software please call with any questions on syntax or grammar.
== END 2019-04-18 10:30 | disposition home or self-care (01) ==
LOC: JP.ED 09:46
DX: G89.18 Other acute postprocedural pain (principal); R10.9 Unspecified abdominal pain; E66.9 Obesity, unspecified; J45.909 Unspecified asthma, uncomplicated; F17.210 Nicotine dependence, cigarettes, uncomplicated; Z68.36 Body mass index [BMI] 36.0-36.9, adult; Z79.899 Other long term (current) drug therapy
CPT/HCPCS: 99283

== ENCOUNTER 2019-05-14 15:09 | Emergency (ER) | payer MEDICAID ==
[2019-05-14 15:43] VITALS: BP 157/95; PULSE 144
[2019-05-14] MEDS ORDERED: oxyCODONE 5 MG Tab PO ONE (16:54)
--- NOTE | 2019-05-14 17:05 | EDM.PDOC ---
ED HPI GENERAL MEDICAL PROBLEM - General Chief Complaint: Abdominal Pain Stated Complaint: HAD SURGERY 27 DAYS AGO INFECTION Time Seen by Provider: 05/14/19 16:20 Source of Information: Reports: Patient History Limitations: Reports: No Limitations - History of Present Illness INITIAL COMMENTS - FREE TEXT/NARRATIVE: 33-year-old with history of recurrent right inguinal hernias status post multiple repairs presents to concerns of right lower quadrant and right inguinal pain. he reports that the pain has been persistent since his surgery last month, and largely unchanged for couple years. He is currently incarcerated , and his pain control options are been limited. Today he was seen by a nurse and noted to be in excruciating pain and hypertensive, therefore allowed to leave to present to the ED. He denies any nausea or vomiting. No fevers or chills. The pain in his right inguinal area, shoots up into his abdomen, worse with palpation of the right testicle. Abdomen Pain Score (Numeric/FACES): 8 - Related Data Allergies Allergy/AdvReac Type Severity Reaction Status Date / Time No Known Allergies Allergy Verified 05/14/19 15:51 Home Meds: Home Meds Albuterol Sulfate [Proair Hfa] 2 puff IH Q4H PRN 02/12/15 [History] Acetaminophen 325 mg PO Q4HR PRN 04/18/19 [History] oxyCODONE 5 mg PO Q4HR PRN #10 tab 05/14/19 [Rx] Past Medical History HEENT History: Reports: Impaired Vision, Other (See Below) Other HEENT History: wears glasses Respiratory History: Reports: Asthma, Bronchitis, Recurrent Gastrointestinal History: Reports: None Genitourinary History: Reports: Other (See Below) Other Genitourinary History: right testicle not fully distended Musculoskeletal History: Reports: Fracture Psychiatric History: Reports: Anxiety, Depression Endocrine/Metabolic History: Reports: Obesity/BMI 30+ - Infectious Disease History Infectious Disease History: Reports: Chicken Pox - Past Surgical History Head Surgeries/Procedures: Reports: None HEENT Surgical History: Reports: Tonsillectomy Respiratory Surgical History: Reports: None GI Surgical History: Reports: Appendectomy, Hernia, Inguinal, Other (See Below) Other GI Surgeries/Procedures: mesh repair 09/01/2018. Inguinal hernia repair apr 2019 Endocrine Surgical History: Reports: None Musculoskeletal Surgical History: Reports: None Dermatological Surgical History: Reports: None Social & Family History - Family History Family Medical History: Noncontributory - Tobacco Use Smoking Status *Q: Current Every Day Smoker Years of Tobacco use: 23 Packs/Tins Daily: 1 - Caffeine Use Caffeine Use: Reports: Coffee - Recreational Drug Use Recreational Drug Use: Yes Recreational Drug Type: Reports: Marijuana/Hashish - Living Situation & Occupation Living situation: Reports: , Other Occupation: Employed ED ROS GENERAL - Review of Systems Review Of Systems: See Below Constitutional: Reports: No Symptoms HEENT: Reports: No Symptoms Respiratory: Reports: No Symptoms Cardiovascular: Reports: No Symptoms Endocrine: Reports: No Symptoms GI/Abdominal: Reports: Abdominal Pain : Reports: No Symptoms Musculoskeletal: Reports: No Symptoms Skin: Reports: No Symptoms Neurological: Reports: No Symptoms Psychiatric: Reports: No Symptoms Hematologic/Lymphatic: Reports: No Symptoms Immunologic: Reports: No Symptoms ED EXAM, GI/ABD - Physical Exam Exam: See Below Exam Limited By: No Limitations General Appearance: Alert, Mild Distress Ears: Normal External Exam Nose: Normal Inspection Throat/Mouth: Normal Inspection Head: Atraumatic, Normocephalic Neck: Normal Inspection Respiratory/Chest: Lungs Clear Cardiovascular: Regular Rate, Rhythm GI/Abdominal Exam: Soft, Non-Tender (Male) Exam: Other (tender, palpable right inguinal hernia) Back Exam: Normal Inspection Extremities: Normal Inspection Neurological: Alert, Oriented Psychiatric: Normal Affect Skin Exam: Warm, Dry Course - Vital Signs Last Recorded V/S: Last Vital Signs Temp 37.2 C 05/14/19 15:46 Pulse 144 H 05/14/19 15:46 Resp 22 H 05/14/19 15:46 BP 157/95 H 05/14/19 15:46 Pulse Ox 98 05/14/19 15:46 - Orders/Labs/Meds Meds: Medications Discontinued Medications Generic Name Dose Route Start Last Admin Trade Name Freq PRN Reason Stop Dose Admin Oxycodone HCl 5 mg 05/14/19 16:54 05/14/19 16:58 Oxycodone PO 05/14/19 16:55 5 mg ONETIME ONE Administration - Re-Assessments/Exams Free Text/Narrative Re-Assessment/Exam: 33-year-old presents with concerns of recurrent right inguinal hernia. He is a long history of these, and has had multiple repairs. On exam he does have a palpable, tender right inguinal hernia. He is in quite a bit of pain, but his symptoms have been stable without any evidence of strangulation or incarceration. There is no emergent need for operative correction. I have arranged for him to have an urgent follow-up in the surgical clinic as soon as possible next week. In the meantime we will use Tylenol and ibuprofen as well as when necessary oxycodone (#10 prescribed). He will return to the ED for any signs of obstruction or worsening pain. 05/14/19 17:09 Departure - Departure Time of Disposition: 17:03 Disposition: DC/Tfer to Other 70 Clinical Impression: Inguinal hernia Qualifiers: Obstruction and gangrene presence: without obstruction or gangrene Laterality: unilateral Recurrence: recurrent Qualified Code(s): K40.91 - Unilateral inguinal hernia, without obstruction or gangrene, recurrent - Discharge Information Prescriptions: oxyCODONE 5 mg PO Q4HR PRN #10 tab PRN Reason: Pain Instructions: Inguinal Hernia, Adult, [id number] Referrals: Sarmad Arnold MD [Primary Care Provider] - Forms: ED Department Discharge Additional Instructions: Please follow up with your surgeon on Friday as scheduled For pain, use 650 mg of tylenol and/or 400 mg of ibuprofen every 4 hours. Use the prescribed oxycodone in addition to this as needed. Return to the ER for significant changes in pain, nausea/vomiting, or fevers.
== END 2019-05-14 17:13 | disposition other institution (70) ==
LOC: JP.ED 15:09
DX: K40.91 Unilateral inguinal hernia, without obstruction or gangrene, recurrent (principal); J45.909 Unspecified asthma, uncomplicated; E66.9 Obesity, unspecified; Z68.35 Body mass index [BMI] 35.0-35.9, adult; F17.210 Nicotine dependence, cigarettes, uncomplicated
CPT/HCPCS: 99284; A9270

== ENCOUNTER 2019-08-15 11:43 | Emergency (ER) | payer MEDICAID, OTHER ==
[2019-08-15 12:02] VITALS: BP 145/99; PULSE 120
[2019-08-15] MEDS ORDERED: Ketorolac 60 MG/2 ML SDV IM ONE (12:34)
[2019-08-15] MEDS ORDERED: Acetaminophen/oxyCODONE 325-5 MG Tab PO ONE (12:35)
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
== END 2019-08-15 13:21 | disposition home or self-care (01) ==
LOC: JP.ED 11:43
DX: G89.29 Other chronic pain (principal); R10.31 Right lower quadrant pain; E66.9 Obesity, unspecified; Z68.45 Body mass index [BMI] 70 or greater, adult; F17.210 Nicotine dependence, cigarettes, uncomplicated
CPT/HCPCS: 36415; 81001; 85025; 96372; 99284; A9270; J1885

== ENCOUNTER 2019-12-13 08:10 | Emergency (ER) | payer MEDICAID ==
--- NOTE | 2019-12-13 08:52 | EDM.PDOC ---
ED HPI GENERAL MEDICAL PROBLEM - General Chief Complaint: Respiratory Problem Stated Complaint: SHORTNESS OF BREATH Time Seen by Provider: 12/13/19 08:35 Source of Information: Reports: Patient History Limitations: Reports: No Limitations - History of Present Illness INITIAL COMMENTS - FREE TEXT/NARRATIVE: 34-year-old male with chronic asthma, has felt more short of breath over the past 2 to 3 days with some intermittent loose stools. He is also had some intermittent chills and generalized weakness, feels he is short of breath with activity. He has been using his medications. Yesterday he was at work and complaining about his symptoms and his coworkers sent him home because they were concerned about coronavirus. He called the nurse hotline last night and they recommended he come into the emergency room to check his breathing, but he waited till this morning. He went into the walk-in clinic, they gave him a pamphlet to call the number for initial screening and he just decided to come to the emergency room instead. No significant cough, denies a headache, sore throat or other cold symptoms. Onset: Gradual Duration: Day(s): (3 to 4 days of symptoms) Worsens with: Reports: Other (Seems to worsen with activity) Associated Symptoms: Reports: Fever/Chills, Malaise, Shortness of Breath ( Especially with activity), Other (Intermittent diarrhea). Denies: Chest Pain, Cough, Headaches, Nausea/Vomiting - Related Data Allergies Allergy/AdvReac Type Severity Reaction Status Date / Time No Known Allergies Allergy Verified 12/13/19 08:21 Home Meds: Home Meds Albuterol [Ventolin HFA] 1 puff INH DAILY 12/13/19 [History] Fluticasone/Salmeterol [Advair 100-50] 1 puff INH DAILY 12/13/19 [History] Past Medical History HEENT History: Reports: Impaired Vision, Other (See Below) Other HEENT History: wears glasses Respiratory History: Reports: Asthma, Bronchitis, Recurrent Gastrointestinal History: Reports: None Genitourinary History: Reports: Other (See Below) Other Genitourinary History: right testicle not fully distended Musculoskeletal History: Reports: Fracture Psychiatric History: Reports: Anxiety, Depression Endocrine/Metabolic History: Reports: Obesity/BMI 30+ - Infectious Disease History Infectious Disease History: Reports: Chicken Pox - Past Surgical History Head Surgeries/Procedures: Reports: None HEENT Surgical History: Reports: Tonsillectomy Respiratory Surgical History: Reports: None GI Surgical History: Reports: Appendectomy, Hernia, Inguinal, Other (See Below) Other GI Surgeries/Procedures: mesh repair 09/01/2018. Inguinal hernia repair apr 2019 Endocrine Surgical History: Reports: None Musculoskeletal Surgical History: Reports: None Dermatological Surgical History: Reports: None Social & Family History - Family History Family Medical History: Noncontributory - Caffeine Use Caffeine Use: Reports: Soda - Recreational Drug Use Recreational Drug Use: Yes Recreational Drug Type: Reports: Marijuana/Hashish Recreational Drug Use Frequency: Daily - Living Situation & Occupation Living situation: Reports: , Other Occupation: Employed ED ROS GENERAL - Review of Systems Review Of Systems: See Below Constitutional: Reports: Fever, Malaise, Night Sweats HEENT: Denies: Ear Pain, Throat Pain, Vision Change Respiratory: Reports: Shortness of Breath, Wheezing. Denies: Sputum Cardiovascular: Denies: Chest Pain GI/Abdominal: Denies: Nausea, Vomiting Skin: Reports: No Symptoms Neurological: Denies: Headache ED EXAM, GENERAL - Physical Exam Exam: See Below General Appearance: No Apparent Distress Ears: Normal TMs Head: Atraumatic Neck: Normal Inspection Respiratory/Chest: No Respiratory Distress, Lungs Clear GI/Abdominal: Non-Tender Neurological: Alert, Oriented Psychiatric: Flat Affect Course - Vital Signs Last Recorded V/S: Last Vital Signs Temp 98.0 F 12/13/19 08:20 Pulse 97 12/13/19 08:20 Resp 20 12/13/19 08:20 BP 160/99 H 12/13/19 08:20 Pulse Ox 99 12/13/19 08:20 - Orders/Labs/Meds Orders: Active Orders 24 hr Category Date Time Status CORONAVIRUS COVID-19 K[facility] [[facility]] Routine Lab 12/13/19 09:03 Received - Re-Assessments/Exams Free Text/Narrative Re-Assessment/Exam: 12/13/19 08:51 O2 saturations are 99%, respiratory rate is normal and his lungs are completely clear to auscultation. He is afebrile. 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 Unfortunately the turnaround time from the hospital emergency room is up to a week and I made it clear to him that he probably should stay off work until the results returns and he agreed. He likely has a mild viral syndrome that is not coronavirus. Departure - Departure Time of Disposition: 09:09 Disposition: Home, Self-Care 01 Clinical Impression: Viral syndrome Diarrhea Qualifiers: Diarrhea type: presumed infectious Qualified Code(s): R19.7 - Diarrhea, unspecified - Discharge Information Instructions: Diarrhea, Adult, [id number] Referrals: PCP,None [Primary Care Provider] - Forms: ED Department Discharge Care Plan Goals: Increase activity and diet as tolerated, consider probiotics if diarrhea persists. Continue your regular medications, and you should self quarantine until your test returns. You can return to the emergency room if worsening such as significant difficulty breathing or not responding to your asthma medications. Sepsis Event Note - Evaluation Sepsis Screening Result: No Definite Risk - Focused Exam Vital Signs: Vital Signs Temp Pulse Resp BP Pulse Ox 12/13/19 08:20 98.0 F 97 20 160/99 H 99 Date Exam was Performed: 12/13/19 Time Exam was Performed: 09:34
[2019-12-13 09:18] VITALS: BP 160/99; PULSE 97
== END 2019-12-13 09:09 | disposition home or self-care (01) ==
LOC: JP.ED 08:10
DX: B34.9 Viral infection, unspecified (principal); R19.7 Diarrhea, unspecified; J45.909 Unspecified asthma, uncomplicated; E66.9 Obesity, unspecified; Z68.36 Body mass index [BMI] 36.0-36.9, adult
CPT/HCPCS: 99284; U0002

== ENCOUNTER 2021-09-23 17:08 | Emergency (ER) | payer MEDICAID ==
[2021-09-23 17:41] VITALS: BP 181/108; PULSE 99
== END 2021-09-23 17:54 | disposition home or self-care (01) ==
LOC: JP.ED 17:08
DX: K04.7 Periapical abscess without sinus (principal); I10 Essential (primary) hypertension; E66.9 Obesity, unspecified; Z68.30 Body mass index [BMI] 30.0-30.9, adult; Z72.0 Tobacco use
CPT/HCPCS: 99282

== ENCOUNTER 2023-01-11 08:56 | Emergency (ER) | payer MEDICAID ==
[2023-01-11 09:24] VITALS: BP 140/89; PULSE 103
== END 2023-01-11 10:00 | disposition home or self-care (01) ==
LOC: JP.ED 08:56
DX: M62.838 Other muscle spasm (principal); I10 Essential (primary) hypertension; J45.909 Unspecified asthma, uncomplicated; E66.9 Obesity, unspecified; Z68.32 Body mass index [BMI] 32.0-32.9, adult; Z72.0 Tobacco use
CPT/HCPCS: 99283

== ENCOUNTER 2023-03-11 20:44 | Emergency (ER) | payer MEDICAID ==
[2023-03-11 21:16] LABS: BASOPHILS ABSOLUTE AUTO 0.05 K/uL (0.00-0.10); BASOPHILS PERCENT AUTO 0.7 % (0.1-1.3); EOSINOPHILS ABSOLUTE AUTO 0.26 K/uL (0.00-0.40); EOSINOPHILS PERCENT AUTO 3.8 % (0.0-5.4); HEMATOCRIT 44.3 % (38.4-49.7); HEMOGLOBIN 15.9 g/dL (12.9-16.9); IMMATURE GRAN ABSOLUTE AUTO 0.02 K/uL (0.00-0.23); IMMATURE GRAN PERCENT AUTO 0.3 % (0.0-0.7); LYMPHOCYTES ABSOLUTE AUTO 2.27 K/uL (0.8-3.3); MEAN CORPUSCULAR HEMOGLOBIN 29.1 pg (31.6-35.5); MEAN CORPUSCULAR HGB CONC 35.9 g/dL (31.6-35.5); MEAN CORPUSCULAR VOLUME 81.1 fL (81.4-99.0); MONOCYTES ABSOLUTE AUTO 0.62 K/uL (0.20-0.90); NEUTROPHILS ABSOLUTE AUTO 3.66 K/uL (1.0-7.6); NEUTROPHILS PERCENT AUTO 53.2 % (40.0-78.1); PLATELET COUNT,PLT 199 K/uL (130-375); RED BLOOD CELL COUNT 5.46 M/uL (4.14-5.76); WHITE BLOOD CELL COUNT,WBC 6.9 K/uL (3.2-11.0)
[2023-03-11 21:27] VITALS: BP 132/80; PULSE 92
[2023-03-11 21:40] LABS: CALCIUM 8.5 mg/dL (8.5-10.1); CREATININE 1.1 mg/dL (0.8-1.3); EST CRCL DRUG DOSING (CG) 105.86 mL/min; POTASSIUM,K 3.4 mmol/L (3.6-5.2); TROPONIN I HIGH SENSITIVITY 4.2 pg/mL (<=60.3)
[2023-03-11 21:46] LABS: ANION GAP 17.4 mmol/L (5.0-14.0)
[2023-03-12] MEDS ORDERED: Azithromycin 250 MG Tab PO STA (01:26)
[2023-03-12] MEDS ORDERED: Amoxicillin/Clavulanate K 875-125 MG Tab PO STA (01:26)
== END 2023-03-11 22:11 | disposition left against medical advice (07) ==
LOC: JP.ED 20:44
DX: F41.9 Anxiety disorder, unspecified (principal); R73.9 Hyperglycemia, unspecified; I10 Essential (primary) hypertension; J45.909 Unspecified asthma, uncomplicated; E66.9 Obesity, unspecified; Z68.31 Body mass index [BMI] 31.0-31.9, adult
CPT/HCPCS: 36415; 80048; 84484; 85025; 93005; 99285

== ENCOUNTER 2023-08-17 10:02 | Emergency (ER) | payer MEDICAID ==
[2023-08-17 11:02] VITALS: BP 132/88; PULSE 68
== END 2023-08-17 11:29 | disposition home or self-care (01) ==
LOC: JP.ED 10:02
DX: K08.89 Other specified disorders of teeth and supporting structures (principal); I10 Essential (primary) hypertension; E66.9 Obesity, unspecified; Z68.32 Body mass index [BMI] 32.0-32.9, adult; Z79.84 Long term (current) use of oral hypoglycemic drugs; Z79.899 Other long term (current) drug therapy; Z90.49 Acquired absence of other specified parts of digestive tract
CPT/HCPCS: 99282